=== PATIENT | female | born 1970 | race African-American/Black ===

== ENCOUNTER 2017-04-26 19:51 | Emergency (ER) | payer BC ==
[2017-04-26 21:02] LABS: #Basophils 0.1 thou/uL (0.0-0.2); #Eosinphils 0.2 thou/uL (0.0-0.7); #Lymphocytes 2.9 thou/uL (1.20-3.40); #Monocytes 0.6 thou/uL (0.11-0.59); #Neutrophils 3.1 thou/uL (1.40-6.50); %Basophils 0.8 % (0.0-1.0); %Eosinophils 2.4 % (0.0-10.0); %Lymphocytes 42.8 % (21.0-51.0); %Monocytes 9.3 % (0.0-10.0); Hematocrit 41.3 % (36.0-47.0); Mean Platelet Volume 7.1 fL (7.4-10.4); Red Blood Cell (RBC) Count 4.38 mill/uL (4.20-5.40); White Blood Cell (WBC) Count 6.9 thou/uL (4.8-10.8)
[2017-04-26 21:04] LABS: Bilirubin Negative (Negative); Blood, Urine Negative (Negative); Glucose, Urine (Dipstick) Negative (Negative); Ketone, Urine Negative (Negative); Nitrite Negative (Negative); Protein, Urine (Dipstick) Negative (Neg-Trace); Urobilinogen 0.2 mg/dL (0.2-1.0)
[2017-04-26] MEDS ORDERED: Ketorolac Tromethamine 30 MG/ML VIAL ONE (21:14)
[2017-04-26] MEDS ORDERED: Metoclopramide HCl 10 MG/2 ML VIAL ONE (21:14)
[2017-04-26] MEDS ORDERED: diphenhydrAMINE 50 MG/ML VIAL ONE (21:14)
[2017-04-26 21:23] LABS: ALT (SGPT) 36 U/L (8-55); AST (SGOT) 22 U/L (5-34); Alkaline Phosphatase 76 U/L (40-150); Anion Gap 7 mmol/L (10-20); BUN (Urea Nitrogen) 12 mg/dL (7.0-18.7); Bilirubin, Total 0.3 mg/dL (0.2-1.2); Calc. Creatinine Clearance 0 mL/min (70-130); Calcium 9.5 mg/dL (7.8-10.44); Carbon Dioxide 30 mmol/L (22-29); Chloride 108 mmol/L (98-107); Estimated GFR-MDRD Greater than 90; Globulin 3.5 g/dL (2.4-3.5); Protein, Total 7.4 g/dL (6.0-8.3)
== END 2017-04-26 23:38 | disposition home or self-care (01) ==
LOC: ERS 19:51
DX: G43.809 Other migraine, not intractable, without status migrainosus (principal)
CPT/HCPCS: 80053; 81003; 85025; 93005; 96365; 96366; 96375; J1200; J1885; J2765

== ENCOUNTER 2018-02-20 08:15 | Outpatient (CLI) | payer OTHER | END 2018-02-20 08:16 | disposition home or self-care (01) | LOC: BICULT 08:15 | PROVIDERS: ATTEND Internal Medicine | DX: M79.605 Pain in left leg (principal) ==

== ENCOUNTER 2021-09-01 13:31 | Outpatient (CLI) | payer BC | END 2021-09-01 13:32 | disposition home or self-care (01) | LOC: BICCT 13:31 | PROVIDERS: ATTEND Psychiatry & Neurology Neurology | DX: G44.209 Tension-type headache, unspecified, not intractable (principal); I66.22 Occlusion and stenosis of left posterior cerebral artery | CPT/HCPCS: 70450 ==

== ENCOUNTER 2021-12-06 19:30 | Outpatient (CLI) | payer BC | END 2021-12-06 19:31 | disposition home or self-care (01) | LOC: SLEEPLAB 19:30 | PROVIDERS: ATTEND Internal Medicine | DX: G47.33 Obstructive sleep apnea (adult) (pediatric) (principal) | CPT/HCPCS: 95811 ==

== ENCOUNTER 2023-12-11 12:29 | Outpatient (CLI) | payer BC | END 2023-12-11 12:30 | disposition home or self-care (01) | LOC: MRI 12:29 | PROVIDERS: ATTEND Psychiatry & Neurology Neurology | DX: I63.9 Cerebral infarction, unspecified (principal); R90.89 Other abnormal findings on diagnostic imaging of central nervous system | CPT/HCPCS: 70551; 93225; 93226 ==

== ENCOUNTER 2023-12-12 13:30 | Outpatient (CLI) | payer BC | END 2023-12-12 13:31 | disposition home or self-care (01) | LOC: ULT 13:30 | PROVIDERS: ATTEND Psychiatry & Neurology Neurology | DX: I63.9 Cerebral infarction, unspecified (principal); I08.8 Other rheumatic multiple valve diseases | CPT/HCPCS: 93306; 93880 ==